=== PATIENT | male | born 1995 | race Caucasian/White ===

== ENCOUNTER 2019-11-27 21:29 | Emergency (ER) | payer SELFPAY ==
[~2019-11-27] VITALS: Ht 167.6 cm; Wt 99.8 kg
[2019-11-27 21:41] VITALS: BP 138/69
--- NOTE | 2019-11-27 21:45 | NUR ---
ambulated to bed 11 with steady gait.
--- NOTE | 2019-11-27 21:49 | NUR ---
24 year old male presents to ED with c/o pleuritic chest pain that is nonradiating. states 8/10 pain that started x 2 days. pt is a/o x4. gcs 15. respirations even and unlabored. cbl sounds. denies sob/cough. abdomen soft and nontender. bowel sounds normoactive. denies any other s/sx. awaiting MSE. pmhx: denies nka
[2019-11-27 22:30] LABS: BASOPHILS # (AUTO) 0.1 K/uL (0.00-0.22); BASOPHILS % (AUTO) 0.6 % (0.0-2.0); EOSINOPHILS # (AUTO) 0.6 K/uL (0-0.4); EOSINOPHILS % (AUTO) 6.5 % (0.0-4.0); HEMATOCRIT 47.5 % (36-52); HEMOGLOBIN 16.4 g/dL (12.0-18.0); LYMPHOCYTES # (AUTO) 2.1 K/uL (2.0-11.5); LYMPHOCYTES % (AUTO) 23.2 % (20.5-51.1); MEAN CORPUSCULAR HEMOGLOBIN 32 pg (27-31); MEAN CORPUSCULAR HGB CONC 34 g/dL (33-37); MEAN CORPUSCULAR VOLUME 93.1 fL (80-94); MONOCYTES # (AUTO) 0.7 K/uL (0.8-1.0); MONOCYTES % (AUTO) 7.5 % (1.7-9.3); NEUTROPHILS # (AUTO) 5.6 K/uL (1.8-7.7); NEUTROPHILS % (AUTO) 62.2 % (42.2-75.2); PLATELET COUNT (AUTO) 287 K/uL (140-450); RED CELL DISTRIBUTION WIDTH 12.9 % (11.6-13.7)
--- NOTE | 2019-11-27 22:30 | NUR ---
Dr. Lofton at bedside.
[2019-11-27 22:49] LABS: PROTHROMBIN TIME 10.6 secs (10.8-13.4)
[2019-11-27 22:51] LABS: ALBUMIN 4.2 g/dL (3.4-5.0); ANION GAP 13.1 (8-16); CARBON DIOXIDE 27.8 mmol/L (21-32); CREATININE 1.1 mg/dL (0.6-1.3); POTASSIUM 3.9 mmol/L (3.5-5.1); TOTAL BILIRUBIN 0.4 mg/dL (0.0-1.0)
--- NOTE | 2019-11-27 23:00 | NUR ---
xray at bedside.
--- NOTE | 2019-11-28 00:32 | NUR ---
Dr. Lofton at bedside.
[2019-11-28 00:46] VITALS: BP 138/69
--- NOTE | 2019-11-28 01:40 | NUR ---
ekg performed at bedside.
--- NOTE | 2019-11-28 02:08 | NUR ---
Patient discharged with v/s stable. Written and verbal after care instructions given and explained. Patient verbalized understanding. Ambulatory with steady gait. All questions addressed prior to discharge. Advised to follow up with PMD. copy of lab works, ekg, and work excuse given to pt.
== END 2019-11-28 02:08 | disposition home or self-care (01) ==
LOC: MED 21:39
DX: R07.9 Chest pain, unspecified (principal); R06.02 Shortness of breath
CPT/HCPCS: 36415; 71045; 80053; 83880; 84484; 85025; 85610; 85730; 93005; 99285; Q0092